=== PATIENT | female | born 1960 | race Caucasian/White ===

== ENCOUNTER 2022-06-08 12:11 | Day surgery (SDC) | payer OTHER, SELFPAY ==
[2022-06-02 13:55] VITALS: BMI 33.2
[2022-06-08] MEDS: ACETAMINOPHEN 325 MG TABLET 975 MG PO (12:37)
[2022-06-08] MEDS: CELECOXIB 200 MG CAPSULE PO (12:37)
[2022-06-08] MEDS: PREGABALIN 75 MG CAPSULE PO (12:37)
[2022-06-08 12:45] VITALS: BP 172/98; PULSE 73; RESP 20; TEMP 36.2; O2SAT 97; BMI 33.2
[2022-06-08] MEDS: LACTATED RINGERS 1,000 ML 42 ML IV (13:03)
[2022-06-08 13:28] LABS: COVID19 -Nasal RAPID Negative (Negative)
--- NOTE | 2022-06-08 15:25 | SUR.PREOP ---
Explained to patient reason for delay and that her surgery would not start for at least an hour or more. Offered to reschedule patient if she desires. Patient would rather wait to have her surgery since she is here from [facility]. Notified OR team. Patient up to bathroom to void without diffculty. Apologized for delay.
--- NOTE | 2022-06-08 16:23 | SUR.PREOP ---
Dr Calixto deciding to cancel surgery due to continued complications with previous patient. Advised patient of updated status and apologized. Patient tearful, angry. Patient states that she had arranged transportation and hotel rooms for her and now all this money is wasted.
--- NOTE | 2022-06-08 16:57 | SUR.PREOP ---
This nurse called [facility] and arranged accommodations for one night for patient and . OR staff offering patient a ride to the [facility], but patient states that she would prefer to walk and that she needed some fresh air. Patient ambulatory and stable on her feet; all belongings returned to patient. IV discontinued prior to discharge.
== END 2022-06-08 12:15 | disposition home or self-care (01) ==
LOC: OR 12:15
PROVIDERS: PCP Family Medicine; Referring Provider Orthopaedic Surgery; Visit Provider Orthopaedic Surgery
DX: M16.12 Unilateral primary osteoarthritis, left hip (principal); Z53.8 Procedure and treatment not carried out for other reasons; Z20.822 Contact with and (suspected) exposure to COVID-19
CPT/HCPCS: 27130; 87635; C9803; J1100; J1170; J2405; J2704; J3010

== ENCOUNTER 2022-06-11 09:54 | Day surgery (SDC) | payer OTHER, SELFPAY ==
[2022-06-11] VITALS (12 sets, daily range): BP systolic 150–193; BP diastolic 75–109; PULSE 61–88; RESP 12–22; TEMP 35.6–37.2; O2SAT 90–100; BMI 32.1
--- NOTE | 2022-06-11 | DI.RAD.S_ITS ---
PROCEDURE: XR HIP W PEL IF DONE LT 2V INDICATIONS: POST OP TECHNIQUE: AP pelvis and lateral view of the left hip acquired. COMPARISON: None. FINDINGS: Bones: Patient is status post left hip arthroplasty, with hardware components in expected positions. The hip joint appears congruent. The visualized bony structures appear intact. Soft tissues: Overlying postoperative changes are noted. No suspicious soft tissue densities. IMPRESSION: Expected appearance post left hip arthroplasty. Dictated by: Ciara Vila M.D. on 06/11/2022 at 20:11 Approved by: Ciara Vila M.D. on 06/11/2022 at 20:12
--- NOTE | 2022-06-11 | DI.RAD.S_ITS ---
PROCEDURE: XR PELVIS 1-2V INDICATIONS: INTER OP LEFT SIDE TECHNIQUE: Intra-operative view of the pelvis and hip acquired. COMPARISON: [facility], CR, PELVIS 1 OR 2 VIEWS, 07/21/2009, 17:39. [facility], CR, XR PELVIS WITH BILATERAL LATERAL HIPS, 02/08/2022, 10:57. [facility], CR, XR PELVIS WITH LATERAL HIP LEFT, 05/14/2022, 13:38. FINDINGS: Bones: Intraoperative devices prior to placement of arthroplasty prostheses are in expected positions on the left. No fractures or suspicious bony lesions. Prior right hip arthroplasty hardware is seen. Soft tissues: Overlying surgical retractors are present, along with other intraoperative changes. IMPRESSION: Normal intraoperative examination. Dictated by: Yonny Duong M.D. on 06/11/2022 at 17:15 Approved by: Yonny Duong M.D. on 06/11/2022 at 17:16
[2022-06-11] MEDS: LACTATED RINGERS 1,000 ML 42 ML IV (12:35)
[2022-06-11 12:39] LABS: COVID19 -Nasal RAPID Negative (Negative)
[2022-06-11] MEDS: ACETAMINOPHEN 325 MG TABLET 975 MG PO (14:12)
[2022-06-11] MEDS: PREGABALIN 75 MG CAPSULE PO (14:13)
[2022-06-11] MEDS: FAMOTIDINE 20 MG/2 ML VIAL IV (14:13)
[2022-06-11] MEDS: CELECOXIB 200 MG CAPSULE PO (14:13)
[2022-06-11] MEDS: VANCOMYCIN 1,000 MG/200 ML PIGGYBACK 200 MG IV (15:24)
--- NOTE | 2022-06-11 15:38 | PM.PREOP ---
Pre-operative Note COVID-19 COVID-19 status: Negative Interval Note History & Physical reviewed/Exam performed by Physician: Yes Changes to H&P: No
--- NOTE | 2022-06-11 15:39 | PM.OP.1 ---
Operative Date/Time/Diagnoses Date of procedure: 06/11/22 Time of procedure: 15:45 Pre-op diagnosis: left hip OA Post-op diagnosis: same Procedure & Clinicians Procedure: Left total hip arthroplasty posterior approach Same procedure as scheduled: Yes Indications: The patient has had progressively worsening left hip pain with radiographic changes consistent with arthritis. Non-operative management has failed and the patient has requested total hip replacement. The risks, benefits and alternatives to surgery were discussed with the patient prior to proceeding. Risks discussed included, but were not limited to, failure to relieve pain, leg length discrepancy, dislocation, stiffness, infection, nerve damage, deep venous thrombosis, pulmonary embolism, stroke, coma, heart attack, permanent paralysis and , as well as the potential need for eventual revision of the prosthetic. 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 Told her that we will be as careful as we can during surgery to protect her sciatic nerve. Surgeon: Nancy Calixto Gas Line Servicer: Rupert Zhao Click Yes if Unassisted: Yes Anesthesia Type: General Operative Notes Findings: Severe left hip osteoarthritis, adequate stability Closure Type: primary Specimen(s): none sent Prosthetic devices, grafts, tissues, transplants, or devices: Calixto and nephew anthology size 8 standard offset, 54 mm R3 cup, neutral poly liner, 36 by +0 Oxinium head,one 6.5 mm screw Estimated Blood Loss (mL): 250 Blood products transfused: none Procedure in detail: The patient was seen in the pre-operative area, where the patient identified the left hip as the operative site and this was marked with my initials. The patient received pre-operative antibiotics and was taken to the operating room and placed on the operative table in the right lateral decubitus position after satisfactory anesthesia. A manager strategic partnerships out was performed. The left leg was prepared from the ankle to the iliac crest with ChloroPrep in the usual fashion and draped through sterile drapes. A PA was used throughout the procedure for intraoperative positioning. Assistance was critical for adequate positioning of the femur and in order to allow adequate hemostasis and safe implantation of the components. The hip was approached through an approximately 20 cm incision centered over the greater trochanter and curving gently posteriorly as it went proximally. This was carried sharply to the fascia hellen, which was divided and retracted with a self retaining retractor. The trochanteric bursa was excised with care being taken to avoid the sciatic nerve, which was identified and protected throughout the case. The short external rotators were incised and the capsulomuscular flap was raised and tagged for later repair. The hip was dislocated, and a femoral neck osteotomy performed approximately 15 mm above the lesser trochanter. Retractors were placed around the femur. The canal was opened with a box cutting osteotome, followed by a T handled reamer and a lateralizing reamer. The chili pepper broach was then used, followed by sequential broaching until there was good stability of the broach in the femur. Retractors were placed to expose the acetabulum. The labrum and central soft tissues were removed. Reaming was performed initially going up in 2 mm increments, then 1 mm increments until good bite was obtained with an odd sized reamer. The cup 1 mm larger than the last reamer was then inserted using the appropriate anteversion guides. It was further stabilized with a single screw. A trial neutral liner was placed. The broach was placed in the canal. A trial head and neck were then placed and the hip relocated and checked for leg length and stability. An intraoperative film confirmed the component position and no evidence of fracture. The patient was stable in the position of sleep, of squatting, and could be put through a range of motion with 45 degrees internal rotation without dislocation. At 90 degrees flexion, internal rotation to 70? was possible before dislocation. This was felt to be satisfactory and the appropriate components were opened, and the trials were removed. The acetabular liner was impacted into position. The final stem was then impacted into the prepared femoral canal. A brief Betadine soak was performed while trialing with head options. The hip was meticulously irrigated with normal saline. Finally the femoral head was impacted onto the stem. The acetabulum was cleared of all material and the hip relocated one final time. The capsulomuscular flap was then repaired to the greater trochanter though an awl hole using the tag sutures. The short external rotators were repaired with a nonabsorbable suture. A deep drain was placed and brought out anteriorly. The fascia hellen was closed with Vicryl. The subcutaneous layer was closed with barbed sutures and surgical glue. An Aquacel Ag dressing was applied and the patient was taken to recovery having tolerated the procedure well. Complications: none Post-operative Condition: stable Disposition: Acute Care Plan for aftercare: The patient will be maintained on a standard total hip replacement protocol with weight bearing as tolerated and posterior hip precautions. The patient will receive Aspirin and sequential compression devices for DVT prophylaxis. The patient will be discharged home when safe for the home environment.
[2022-06-11] MEDS: CEFAZOLIN 2 GM/100 ML PREMIX 100 ML IV ×2 (16:25→22:20)
[2022-06-11] MEDS: TRANEXAMIC ACID 1,000 MG VIAL 2000 MG INJ ×2 (16:25→17:59)
--- NOTE | 2022-06-11 17:10 | SUR.OPER ---
Lateral on a okeefe bag, head on pillow, gel axillary roll in place, bottom leg bent with gel pad under knee to foot, secured with tape, upper leg straight and supported by surgeon/PA. Upper arm supported by pillows and secured over bottom arm to padded arm board. Hip Laboratory Worker used to secure patient into position with gelpad at pelvic support
[2022-06-11] MEDS: BUPIVACAINE 0.25% (PF) 60 ML, EPINEPHrine 0.3 MG INJ (17:21)
[2022-06-11] MEDS: BUPIVACAINE LIPOSOME 266 MG/20 ML VIAL INJ (17:59)
[2022-06-11] MEDS: OXYCODONE IR 5 MG TABLET PO (18:40)
[2022-06-11] MEDS: ONDANSETRON 4 MG/2 ML INJ IV (18:40)
[2022-06-11] MEDS: LACTATED RINGERS 1,000 ML 120 ML IV (19:54)
[2022-06-11] MEDS: PANTOPRAZOLE DR 20 MG TABLET PO (22:18)
[2022-06-11] MEDS: IBUPROFEN 400 MG TABLET PO (22:18)
[2022-06-11] MEDS: ASPIRIN EC 81 MG TABLET PO (22:19)
[2022-06-11] MEDS: DULOXETINE 30 MG CAPSULE PO (22:19)
[2022-06-11] MEDS: ACETAMINOPHEN 325 MG TABLET 650 MG PO (22:23)
[2022-06-12] MEDS: IBUPROFEN 400 MG TABLET PO ×4 (02:28→11:25)
[2022-06-12 03:00] VITALS: BP 131/68; PULSE 81; RESP 17; TEMP 36.6; O2SAT 96
[2022-06-12] MEDS: ACETAMINOPHEN 325 MG TABLET 650 MG PO ×2 (03:04→08:05)
[2022-06-12] MEDS: OXYCODONE IR 5 MG TABLET PO ×2 (03:06→09:55)
[2022-06-12] MEDS: CEFAZOLIN 2 GM/100 ML PREMIX 100 ML IV (05:38)
[2022-06-12 05:50] LABS: Hematocrit 32.5 % (36-46); Hemoglobin 11.2 g/dL (12.0-16.0)
--- NOTE | 2022-06-12 07:36 | P.DS_ITS ---
History of Present Illness History of Present Illness Date Patient Seen: 06/12/22 Time Patient Seen: 07:36 Chief complaint: Hip pain Narrative: Patient states her pain is [id number]. Denies fever chills. No nausea vomiting. Patient has assistance at home. Discharge Providers Provider Discharge Date: 06/12/22 Primary care physician: John Pimentel MD Consults: 06/11/22 14:54 Consult to Anesthesiology Routine Comment: Consulting Provider: Anesthesiologist Reason for consultation: Regional block for post operative pain control 06/11/22 19:38 Consult to Discharge Planning Routine Comment: Consult to Physical Therapy Evaluate & Treat Comment: Physician Instructions: post op ELDON protocol Discharge provider: Rupert Zhao PA-C Summary Hospital Course Discharge Diagnosis: Left hip osteoarthritis Hospital Course: Left total hip arthroplasty posterior approach Same procedure as scheduled: Yes Indications: The patient has had progressively worsening left hip pain with radiographic changes consistent with arthritis. Non-operative management has failed and the patient has requested total hip replacement. The risks, benefits and alternatives to surgery were discussed with the patient prior to proceeding. Risks discussed included, but were not limited to, failure to relieve pain, leg length discrepancy, dislocation, stiffness, infection, nerve damage, deep venous thrombosis, pulmonary embolism, stroke, coma, heart attack, permanent paralysis and , as well as the potential need for eventual revision of the prosthetic.? 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 Told her that we will be as careful as we can during surgery to protect her sciatic nerve. Surgeon: Nancy Calixto Machine Precision Engraver: Rupert Zhao Click Yes if Unassisted: Yes Anesthesia Type: General Operative Notes Findings: Severe left hip osteoarthritis, adequate stability Closure Type: primary Specimen(s): none sent Prosthetic devices, grafts, tissues, transplants, or devices: Calixto and nephew anthology size 8 standard offset, 54 mm R3 cup, neutral poly liner, 36 by +0 Oxinium head,one 6.5 mm screw Estimated Blood Loss (mL): 250 Blood products transfused: none Patient admitted to the hospital for left total hip arthroplasty, posterior approach. Patient consented to the same. Patient underwent left total hip arthroplasty June 11, 2022. Patient is back in her room recovering well as in stable condition. Patient has been up a few times since surgery to use the restroom. Her pain is well managed. She will work with physical therapy today. Posterior hip precautions. She will discharge home today after physical therapy if safe for home environment. Status at Discharge Cognitive/behavioral status at discharge: at baseline, oriented Functional status at discharge: uses cane/walker Overall status at discharge: patient is progressing back to baseline Exam Vital Signs (past 8 hours): - 06/12/22 03:00 Temperature 97.8 F Pulse Rate 81 Respiratory Rate 17 Blood Pressure 131/68 Pulse Oximetry 96 Oxygen Flow Rate 0 Oxygen Delivery Method Room Air Oxygen Flow Rate 0 Narrative Exam Narrative: 61-year-old female resting comfortably in bed in no apparent distress. Jodie dressing is on and functioning. Dressing is clean, dry and intact. Motor functions intact bilateral lower extremities. Sensation grossly intact to light touch bilateral lower extremities. Const General: cooperative and comfortable Objective Labs 06/12/22 04:53 Labs: Laboratory Results - last 24 hr 06/11/22 06/12/22 12:02 04:53 Hgb 11.2 L Hct 32.5 L SARS-CoV-2 (PCR) Negative PFSH Medical History Anxiety Asthma Depression Fatty liver GERD (gastroesophageal reflux disease) Hiatal hernia HPV in female HTN (hypertension) Metabolic syndrome Neuropathy Normal esophagogastroduodenoscopy (EGD) Peroneal nerve palsy Right femoral fracture Scarlet fever Seasonal allergies Surgical History History of bunionectomy of left great toe History of bunionectomy of right great toe History of gynecologic surgery History of hysterectomy (~2005) History of radial keratotomy History of total right hip replacement (07/27/09) Hx of arthroscopy of right knee (2009) Hx of hernia repair Hx of nasal septoplasty Hx of sinus surgery S/P left unicompartmental knee replacement (2009) Social History household members: spouse Smoking Status: Never smoker alcohol intake: current Discharge Assessment & Plan Assessment and Plan Assessment: Patient progressing as expected status post left total hip arthroplasty, posterior approach Plan of Treatment: Mobilize with physical therapy, posterior hip precautions Aspirin 81 mg b.i.d. x6 weeks Multimodal pain management Discharge home today after physical therapy if safe for home environment Discharge Plan Discharge Plan Patient Disposition: Home Discharge orders & Medications Discharge Orders: Discharge (Order); Ordered 06/12/22 Ordered By: Rupert Zhao Prescriptions: New acetaminophen 325 mg Tablet 650 mg PO Q6H Qty: 60 0RF polyethylene glycol 3350 17 gram Powder In Packet 17 gm PO DAILY PRN (Reason: Constipation) Qty: 10 0RF aspirin 81 mg Tablet,Delayed Release (Dr/Ec) 81 mg PO BID Qty: 60 0RF ibuprofen 400 mg Tablet 400 mg PO Q4H Qty: 60 0RF Continued duloxetine [Cymbalta] 30 mg Capsule,Delayed Release(Dr/Ec) 30 mg PO BEDTIME Qty: 0 losartan 25 mg Tablet 25 mg PO DAILY loratadine 10 mg Tablet 10 mg PO DAILY omeprazole 20 mg Tablet,Delayed Release (Dr/Ec) 20 mg PO BEDTIME Discontinued tramadol 50 mg Tablet 25 mg PO BEDTIME PRN (Reason: Sleep, pain) Qty: 0 naproxen sodium [Aleve] 220 mg Capsule 440 mg PO BID Follow up/Referrals: John Pimentel MD [Primary Care Provider] - Nancy Calixto MD [Physician] - As previously scheduled (Follow up w/ Rupert Zhao PA-C, on 06/22/2022 @ 9:00 am at [facility] in [employer].) Diet/Activity/Treatments Diet: Diet as Tolerated Activity: Weightbearing as tolerated to left hip. Posterior hip precautions. Cold/Heat Therapy: Ice to hip as needed for pain. Skin/Wound/Dressing Care Report to your healthcare provider any signs of infection, such as:: chills, fever, night sweats, unusual drainage and unusual redness Dressing: May shower with dressing in place; try to keep battery pack out of direct shower spray. Batteries will in 5-7 days, at which point you may cut off the battery pack and dispose of it. Keep JODIE dressing on until follow up in office. No bathing or otherwise soaking incision. Call the office if the dressing becomes saturated inside. Visit Report/Discharge Packet Instructions: DI for Hip Replacement Stand Alone Forms: Patient Portal/API, Surgery Discharge Discharge Data Primary Care Provider: John Pimentel Attending Provider: Nancy Calixto VTE Deep Vein Thrombosis/Pulmonary Embolism Present on Admission: No
[2022-06-12] MEDS: ASPIRIN EC 81 MG TABLET PO (08:02)
[2022-06-12] MEDS: LORATADINE 10 MG TABLET PO (08:03)
[2022-06-12] MEDS: DOCUSATE 100 MG CAPSULE PO (08:03)
[2022-06-12] MEDS: OXYCODONE IR 10 MG TABLET PO ×2 (08:03→11:25)
[2022-06-12 08:04] VITALS: BP 142/79; PULSE 74
[2022-06-12] MEDS: LOSARTAN 25 MG TABLET PO (08:04)
--- NOTE | 2022-06-12 09:28 | PT.IIE ---
Current Diagnoses Unilateral primary osteoarthritis, left hip (06/11/22) Surgery Performed Operation Date: 06/11/22 14:15 Actual Procedures p Total Hip Arthroplasty(Left) - Nancy Calixto MD Surgical History (Last Reviewed 06/12/22 @ 07:38 by Rupert Zhao PA-C) History of bunionectomy of left great toe History of bunionectomy of right great toe History of gynecologic surgery History of hysterectomy (~2005) History of radial keratotomy History of total right hip replacement (07/27/09) Hx of arthroscopy of right knee (2009) Hx of hernia repair Hx of nasal septoplasty Hx of sinus surgery S/P left unicompartmental knee replacement (2009) Medical History (Last Reviewed 06/12/22 @ 07:38 by Rupert Zhao PA-C) Anxiety Asthma Depression Fatty liver GERD (gastroesophageal reflux disease) Hiatal hernia HPV in female HTN (hypertension) Metabolic syndrome Neuropathy Normal esophagogastroduodenoscopy (EGD) Peroneal nerve palsy Right femoral fracture Scarlet fever Seasonal allergies Physical Therapy Inpatient Evaluation/Re-Eval M1 PT/OT-IP Prior Functional Status Start: 06/12/22 11:11 Freq: NEEDED Status: Active Protocol: Document 06/12/22 09:28 AB (Rec: 06/12/22 11:22 AB [email or web address]) Medical Review Prior Functional Status Medical History Reviewed Yes Communication able to make needs known Mobility and Gait pt stated that she is independent with all mobilities and ambulation without AD Social History Household Members spouse Living Arrangements Apartment/Condo Number of Floors (Floors) One Floor Number of Stairs To Enter/Railing? 16 steps with B rails to enter Home Environment Tub/Shower Home Equipment Front Wheel Walker,Raised Toilet Seat Without Armrests, Shower Seat without Backrest, Hand Held Shower,Grab Bars Near Toilet,Grab Bars In Shower Employment Status H[employer] Employed Additional Social History Comment pt has a L side bed cane pt works as a homehealth PT M2 PT-IP Current Condition Start: 06/12/22 11:11 Freq: NEEDED Status: Active Protocol: Document 06/12/22 09:28 AB (Rec: 06/12/22 11:22 AB [email or web address]) Physical Therapy Current Condition Current Condition Evaluation Date 06/12/22 Treatment Diagnosis s/p L ELDON posterior approach; difficulty in walking Onset Date 06/11/22 M3 PT-IP Subjective Start: 06/12/22 11:11 Freq: NEEDED Status: Active Protocol: Document 06/12/22 09:28 AB (Rec: 06/12/22 11:22 [email or web address]) Subjective Physical Therapy Visit Type Type Initial Evaluation Visit Start Time 09:28 Visit Stop Time 10:30 Total Visit Minutes 37 Notes pt seen for split visits: 928 to 950 am and 1015 to 1030 am. Number of OPTICAL INSTRUMENTS SUPERVISOR Visits 37 Physical Therapy Visit Comments Patient Comments agreeable to do PT Therapy Pain Assessment Pain When Pain Assessed At Rest Pain Present Pain Present Pain Reported Location left hip Intensity 3 Scale Used increases to 8/10 with movement Pain Management Techniques Distraction,Modification of Treatment,Re-positioning, Timing of Activity with Medications M4 PT-IP Mobility and Gait Start: 06/12/22 11:11 Freq: NEEDED Status: Active Protocol: Document 06/12/22 09:28 AB (Rec: 06/12/22 11:22 AB [email or web address]) PT-Bed Mobility Assessment Sit to Supine Sit to Supine Standby Assistance PT-Transfer Assessment Sit to and From Stand Sit to and from Stand Standby Assistance,Contact Guard Assistance,1 Person Assistance,Use of Upper Extremities Equipment Transfer Assistive Device Gait Belt,Front Wheeled Walker Orthotic/Prosthetic Devices or Brace: No Transfers Transfer Destination Chair Transfer Technique ambulated Transfer Ability Level of Assist Standby Assistance,Contact Guard Assistance,1 Person Assistance,Use of Upper Extremities Comments Mobility Comments reviewed posterior hip precautions with pt. 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 BP: 146/84. completed supine to sit SBA. no c/o dizziness. completed sit to stand CGA and able to maintain hip precautions. ambulated to the chair using FWW CGA and cues for safety. pt positioned on chair for breakfast. call light and table placed within reach. Checked back on pt. pt standing by the sinking and washing up using FWW for support SBA. able to maintain standing using FWW SBA while putting gown on. ambulated 125 ft using FWW SBA to occasional CGA and cues to slow down. pt completed up/ down stairs using B rails SBA. pt ambulated back to her room using FWW SBA. call light positioned within reach. Pt without any other concerns. Gait Assessment Gait Gait Assistance Required: Standby Assistance,Contact Guard Assist Distance (Feet) 125 Able to Maintain Weight Bearing Status Yes During Gait Assistive Devices Assistive Device Gait Belt,Front Wheeled Walker Orthotic/Prosthetic Devices or Brace: No Gait Deviations General Gait Pattern Decreased Stride Length, Decreased Feet Clearance,Step- to Gait Factors Limiting Gait Function Factors Limiting Gait Function Decreased Activity Tolerance, Decreased Strength,Poor Balance Stair Climbing Assessment Evaluation Level of Assist On Stairs Standby Assistance Devices Stair Climbing Assistive Devices Left Railing,Right Railing Technique/Endurance Stair Climbing Direction Ascend and Descend Stair Climbing Technique Step to Step Number of Steps Climbed 3 Query Text: Stair Climbing Set # Repetitions (reps) 3 PT-Balance Assessment Sitting Balance and Reactions Static Sitting Balance Ability Normal Dynamic Sitting Balance Ability Normal Standing Balance and Reactions Static Standing Balance Ability Good Dynamic Standing Balance Ability Fair Device Used FWW M5 PT-IP Objective Assessments Start: 06/12/22 11:11 Freq: NEEDED Status: Active Protocol: Document 06/12/22 09:28 (Rec: 06/12/22 11:22 [email or web address]) Orientation Orientation/Cognition Level of Alertness Alert Orientation Name,Age,Birthday,Month,Date, Year,Day of Week,Place, Situation Safety Awareness Understands Safety Issues Memory Description No Deficits Noted Strength Lower Extremity Strength Assessment Left Impaired Hip 4-/5 Knee 4-/5 Coordination Assessment Gross Coordination Gross Coordination WNL Sensation Assessment Sensation Gross Sensation Right LE Impaired Comments Sensation Comments stated 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 Muscle Tone Muscle Tone WNL Yes M6 PT-IP Treatment Start: 06/12/22 11:11 Freq: NEEDED Status: Active Protocol: Document 06/12/22 09:28 (Rec: 06/12/22 11:22 [email or web address]) Physical Therapy Treatment Exercises Exercises Heel Slides Education Education Provided Precautions,Weight Bearing Status,Post-Op Packet,Safety M7 PT-IP Assessment and Plan Start: 06/12/22 11:11 Freq: NEEDED Status: Active Protocol: Document 06/12/22 09:28 (Rec: 06/12/22 11:22 [email or web address]) PT Summary Assessment and Plan Potential Rehabilitation Potential Good Status of Condition at Evaluation Stable Summary Impairments Pain,ROM,Strength,Balance, Coordination,Sensation, Cognition,Bed Mobility, Transfers,Gait,Activity Tolerance Assessment Summary pt requiring SBA to CGA with mobility using FWW and will have her spouse to assist her at home. pt may go home when medically stable. Goals Bed Mobility Goal Independent Transfer Goal Independent,Front Wheeled Walker Gait Goal Independent,Front Wheel Walker Gait Distance 250 Other Goals up/down 16 steps B rails mod I Days to Meet Goals 5 Frequency of Treatment Frequency Of Treatment Twice a Day Treatment Plan Physical Therapy Treatment Plan Bed Mobility Training,Transfer Training,Gait Training, Therapeutic Exercise,Balance Retraining,Post Op Education, Discharge Planning,Hot or Cold Pack,Neuromuscular Re-ed, Coordination Retraining,Manual Therapy Precautions Posterior Hip Precautions No Hip Flexion > 90 degrees,No Hip Internal Rotation,No Hip Adduction Weight Bearing Status Weight Bearing Status Weight Bear as Tolerated Allowed Weight Bearing Amount (enter % LLE WBAT or #) (%) Recommendations To Nursing Amount of Assist Needed 1 Person Assist Discharge Recommendations PT Discharge Recommendations Home with Assistance, Outpatient PT Transportation Needs at Discharge Private Vehicle
--- NOTE | 2022-06-12 11:08 | CM.DANOTE ---
Initial Discharge Assessment Note: Case reviewed, met with patient. Introduced self and role. 61 year old admitted for elective L ELDON on 06/11/22. She is having an uneventful postop course. Payer: [employer] and self pay PCP: John Pimentel, Surgeon: Nancy Calixto Patient lives with spouse in Tuesday and is independent in ADLs. 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 PT Yanique in to work with patient. Patient states she feels ready for DC. She saw ortho PA this morning. Plan: Discharge per ortho plan/PT evaluation back to Tuesday ([place] being worked on) Discharge Planning/Care Management CM Discharge Assessment Start: 06/12/22 11:07 Freq: Status: Active Protocol: Document 06/12/22 11:07 (Rec: 06/12/22 11:08 [email or web address]) Discharge Planning Assessment Assigned Broadcast Transmitter Operator Kirstin Jay RN/DCP Advance Directives? No History Provided By Patient Prior Living Arrangements Apartment/Condo Household Members spouse Type of transporation used prior to Drives own vehicle admit Independent with ADL's Yes Is patient alert and oriented? Yes Caregiver for Another No Barriers to Discharge No Discharge Plan Home Referrals Initiated None needed Review Status In Process Next Review Type Continued Stay Review
== END 2022-06-12 12:00 | disposition home or self-care (01) ==
LOC: OR 09:56 → AC 09:57
PROVIDERS: PCP Family Medicine; Referring Provider Orthopaedic Surgery; Visit Provider Orthopaedic Surgery
PROC: 0SRB0JZ Replacement of Left Hip Joint with Synthetic Substitute, Open Approach (ICD-10-PCS; CPT 27130; principal; 2022-06-11 14:15)
DX: M16.12 Unilateral primary osteoarthritis, left hip (principal); Z20.822 Contact with and (suspected) exposure to COVID-19
CPT/HCPCS: 27130; 36415; 36592; 72170; 73502; 85014; 85018; 87635; 97161; C1776; C9803; C9290; J0171; J0690; J2405